=== PATIENT | female | born 2000 | race Caucasian/White ===

== ENCOUNTER 2020-06-18 19:30 | Outpatient (CLI) | payer OTHER ==
[2020-06-18 21:22] LABS: APPEARANCE,URINE CLEAR; BILIRUBIN,URINE NEGATIVE (NEGATIVE); COLOR,URINE STRAW; GLUCOSE, URINE NEGATIVE (NEGATIVE); KETONES,URINE NEGATIVE (NEGATIVE); LEUKOCYTE ESTERASE,URINE NEGATIVE (NEGATIVE); NITRITE,URINE NEGATIVE (NEGATIVE); PROTEIN,URINE NEGATIVE (NEGATIVE); URINE SPECIFIC GRAVITY 1.002; UROBILINOGEN,URINE NEGATIVE mg/dL (<2.0)
[2020-06-18 21:53] LABS: URINE AMPHETAMINES SCREEN NEGATIVE; URINE BARBITURATES SCREEN NEGATIVE; URINE BENZODIAZEPINES SCREEN NEGATIVE; URINE COCAINE SCREEN NEGATIVE; URINE MARIJUANA (THC) SCREEN NEGATIVE; URINE METHADONE SCREEN NEGATIVE; URINE PHENCYCLIDINE SCREEN NEGATIVE
== END 2020-06-18 21:51 | disposition home or self-care (01) ==
LOC: LC 19:30
PROVIDERS: ATTEND Obstetrics & Gynecology
DX: O47.1 False labor at or after 37 completed weeks of gestation (principal); Z3A.37 37 weeks gestation of pregnancy; Z91.010 Allergy to peanuts
CPT/HCPCS: 59025; 80307; 81005

== ENCOUNTER 2020-06-24 01:06 | Inpatient (IN) | payer OTHER ==
--- NOTE | 2020-06-24 01:14 | Non Stress Test Report ---
Non Stress Test Datetime Report Generated by CPN: 06/24/2020 01:14 DEMOGRAPHIC EGA NST: 37.5 INDICATION Indication for Study (NST) Other: IUP @ 37.5, labor observation VITAL SIGNS Temperature - NST: 98.3 Pulse - NST: 90 RESP - NST: 16 NBPSYS NST: 115 NBPDIA NST: 58 MONITORING Monitor Explained: Monitor Explained; Test Explained; Patient Verbalized Understanding Time on Monitor: 06/18/2020 19:53 Time off Monitor: 06/18/2020 20:30 NST Duration: 37 NST INTERVENTIONS NST Interventions: PO Hydration; Reposition Patient Physician Notified NST: Dr. Smith BABY A: [id number] BABY A Movement : Present Contraction Frequency : irregular FHR Baseline : 130 Accelerations : 15X15 Variability : Moderate 6-25bpm NST Review: Meets Criteria for Reactive NST NST Review and Verified By : Garfield vazquez RN NST Results: Reactive NST REPORT Report Trigger: Send Report
[2020-06-24 01:49] LABS: APPEARANCE,URINE CLEAR; BILIRUBIN,URINE NEGATIVE (NEGATIVE); COLOR,URINE STRAW; GLUCOSE, URINE NEGATIVE (NEGATIVE); KETONES,URINE NEGATIVE (NEGATIVE); LEUKOCYTE ESTERASE,URINE TRACE (NEGATIVE); NITRITE,URINE NEGATIVE (NEGATIVE); PROTEIN,URINE NEGATIVE (NEGATIVE); URINE SPECIFIC GRAVITY 1.003; UROBILINOGEN,URINE NEGATIVE mg/dL (<2.0)
[2020-06-24] MEDS ORDERED: GENTAMICIN SULFATE INJ 80 MG/2 ML VIAL ONE (02:08)
[2020-06-24] MEDS ORDERED: AMPICILLIN SOD INJ 2 GM VIAL ONE ×2 (02:08→08:21)
[2020-06-24] MEDS ORDERED: AMPICILLIN SODIUM 2 GM in NORMAL SALINE 100 ML IV ONE (02:13)
[2020-06-24] MEDS ORDERED: RINGERS SOLUTION,LACTATED 1,000 ML IV PRN (02:13)
[2020-06-24] MEDS ORDERED: RINGERS SOLUTION,LACTATED 500 ML IV ONE (02:13)
[2020-06-24] MEDS ORDERED: GENTAMICIN SULFATE INJ 80 MG/2 ML VIAL IV ONE (02:14)
[2020-06-24 02:15] LABS: URINE AMPHETAMINES SCREEN NEGATIVE; URINE BARBITURATES SCREEN NEGATIVE; URINE BENZODIAZEPINES SCREEN NEGATIVE; URINE COCAINE SCREEN NEGATIVE; URINE MARIJUANA (THC) SCREEN NEGATIVE; URINE METHADONE SCREEN NEGATIVE; URINE PHENCYCLIDINE SCREEN NEGATIVE
[2020-06-24] MEDS ORDERED: GENTAMICIN SULFATE 150 MG in DEXTROSE 5%-WATER 100 ML IV ONE (02:30)
[2020-06-24 02:55] LABS: ABSOLUTE EOSINOPHILS # (AUTO) 0.1 10^3/uL (0.0-0.6); ABSOLUTE LYMPHOCYTES (AUTO) 1.9 10^3/uL (0.5-4.7); ABSOLUTE MONOCYTES (AUTO) 0.8 10^3/uL (0.1-1.4); ABSOLUTE NEUT (AUTO) 11.6 10^3/uL (1.7-8.2); BASOPHILS % (AUTO) 0.3 % (0-2); EOSINOPHILS % (AUTO) 0.9 % (0-6); HEMATOCRIT 29.3 % (36.0-47.0); HEMOGLOBIN 10.2 g/dL (12.0-15.5); LYMPHOCYTES % (AUTO) 13.1 % (13-45); MEAN CORPUSCULAR HEMOGLOBIN 31.2 pg (27.0-33.4); MEAN CORPUSCULAR HGB CONC 34.7 g/dL (32.0-36.0); MEAN CORPUSCULAR VOLUME 90 fl (80-97); MONOCYTES % (AUTO) 5.5 % (3-13); PLATELET COUNT 176 10^3/uL (150-450); RED BLOOD COUNT 3.25 10^6/uL (3.72-5.28); RED CELL DISTRIBUTION WIDTH 12.5 % (11.5-14.0); SEGMENTED NEUTROPHILS % (AUTO) 80.2 % (42-78); TOTAL CELLS COUNTED % (AUTO) 100 %; WHITE BLOOD COUNT 14.4 10^3/uL (4.0-10.5)
[2020-06-24] MEDS ORDERED: MISOPROSTOL 0.2 MG TABLET ONE (03:43)
[2020-06-24] MEDS ORDERED: OXYTOCIN 10 UNIT/ML VIAL ONE (03:43)
[2020-06-24] MEDS ORDERED: OXYTOCIN/0.9 % SODIUM CHLORIDE 30 UNIT/500 ML RTUINJ ONE (03:43)
[2020-06-24] MEDS ORDERED: LIDOCAINE 1% INJ-PF (10 MG/ML) 30 ML SDV ONE (03:43)
--- NOTE | 2020-06-24 04:28 | Admission Physical ---
Datetime Report Generated by CPN: 06/24/2020 04:27 CURRENT ADMISSION Chief Complaint: Suspected Ruptured Membranes Chief Complaint Other: thinks she started leaking possibly on Tuesday. Indication for Induction: Not Applicable Indication for Induction- Other: may need augmentation Admit Impression : Term, Intrauterine ; No Active Labor; Ruptured Membranes Admit Plan: Admit to Unit; Initiate Labor Protocol ALLERGIES Medication Allergies: No Medication Allergies: peanut (06/18/2020) Latex: No Latex Allergies Food Allergies: peanut butter OBSTETRICAL HISTORY EDC: 07/04/2020 00:00 : 1 Para: 0 Term: 0 : 0 SAB: 0 IAB: 0 Ectopic: 0 Livin Cesareans: 0 VBACs: 0 Multiple Births: 0 Gestational Diabetes: No Rh Sensitization: No Incompetent Cervix: No MAYURI: No Infertility: No ART Treatment: No Uterine Anomaly: No IUGR: No Hx Previous C/S: No Macrosomia: No Hx Loss/Stillborn: No PIH: No Hx : No Placenta Previa/Abruption: No Depression/PP Depression: No PTL/PROM: No Post Hemorrhage: No Current Procedures: Ultrasound; NST SEE RECORDS Alcohol: No Marijuana : No Cocaine: No Other Illicit Drugs: No Cigarettes: Never Smoker. [id number] Advised to Stop: No MEDICAL HISTORY Diabetes: No Blood Transfusion: No Pulmonary Disease (Asthma, TB): No Breast Disease: No Hypertension: No Social Work Case Manager Surgery: No Heart Disease: No Hosp/Surgery: No Autoimmune Disorder: No Anesthetic Complications: No Kidney Disease: No Abnormal Pap Smear: No Neuro/Epilepsy: No Psychiatric Disorders: No Other Medical Diseases: No Hepatitis/Liver Disease: No Significant Family History: No Varicosities/Phlebitis: No Trauma/Violence : No Thyroid Dysfunction: No INFECTIOUS HISTORY Gonorrhea: No Genital Herpes: No Chlamydia: No Tuberculosis: No Syphilis: No Hepatitis: No HIV/AIDS Exposure: No Rash or Viral Illness: No HPV: No PHYSICAL EXAM General: Normal HEENT: Normal Neurologic: Normal Thyroid: Deferred Heart: Normal Lungs: Normal Breast: Deferred Back: Normal Abdomen: Normal Genitourinary Exam: Normal Extremities: Normal DTRs: Normal Pelvic Type: Adequate Vital Signs: Reviewed VAGINAL EXAM Dilatation: 4 Effacement: 90 Station: -1 Contraction Comments: irreg MEMBRANES Membranes: Ruptured Amniotic Fluid Color: Clear FETUS A EGA: 38.4 Monitoring: External US FHR- Baseline: 120 Variability: Moderate 6-25bpm Accelerations: 15X15 Decelerations: None FHR Category: Category I Presentation: Vertex Admit Comment: 20yo at 38+4ega presents for leaking of fluid since the evening of Tuesday. She reports that she felt like she voided on herself but then it continued leaking through the weekend and then she came in for evaluation today. Due to suspected prolonged ruptute of membranes will begin Amp/Gent. ELevated WBC count but o/w patient is afebrile and without signs of chorio. EFW was 7#7oz on 06/09 at 36wks. GBS negative. Late transfer of care at 33wks but review of records with uncomplicated care. Passed 1hr GTT. Admit and anticipate . PLANS FOR LABOR AND DELIVERY Labor and Delivery: None Pain Management: None Feeding Preference: Formula Benefit of Breast Feed Discussed: Yes Circumcision: Yes INFORMED CONSENT Informed Consent Obtained: Vaginal Delivery; Risks, Benefits and Alternatives Discussed Signature: with User ID: [email or web address]
[2020-06-24] MEDS ORDERED: EPHEDRINE SULFATE INJ 50 MG/1 ML AMPULE ONE ×2 (04:57→07:05)
[2020-06-24] MEDS ORDERED: FENTANYL/BUPIVACAINE/NS/PF 0 MCG/0 ML RTUINJ EPI ONE (04:57)
[2020-06-24] MEDS ORDERED: ROPIVACAINE HCL 0.2% INJ/PF (2 MG/ML) 20 ML SDV ONE ×2 (04:58→07:05)
[2020-06-24] MEDS ORDERED: OXYTOCIN/0.9 % SODIUM CHLORIDE 30 UNIT/500 ML RTUINJ IV PRN ×2 (05:00→10:51)
[2020-06-24] MEDS ORDERED: FENTANYL/BUPIVACAINE/NS/PF 300 MCG/150 ML RTUINJ EPI ONE (07:05)
--- NOTE | 2020-06-24 08:27 | L&D Progress Notes ---
PROGRESS NOTES Datetime Report Generated by CPN: 06/24/2020 08:27 PROGRESS NOTE Informed Consent Obtained: Vaginal Delivery; Risks, Benefits and Alternatives Discussed Comment: Report from Dr. Reese, reviewed records and monitor strips, Cat 1 strip, has been ruptured since Tuesday, received antibiotics, on Pitocin, comfortable with epidural Plan: Continue antibiotics, Pitocin, monitor strip Anticipate VAGINAL EXAM Dilatation: 4 Effacement: 90 Station: -1 Contractions: irreg LAST VAGINAL EXAM-NURSING Nursing Exam Dilitation: 6.0 Nursing Exam Effacement: 90 Nursing Exam Station: 0 MEMBRANES Membranes: Ruptured Amniotic Fluid Color: Clear FETUS A Presentation: Vertex SIGNATURE SIGNATURE: [id number];14,[id number];13,[id number] Assignment: Lainey Sheffield MD Signature: with User ID: [email or web address] : with User ID: [email or web address]
[2020-06-24] MEDS ORDERED: AMPICILLIN SOD INJ 2 GM VIAL IV ONE (08:30)
[2020-06-24] MEDS ORDERED: AMPICILLIN SOD INJ 2 GM VIAL IM SCH (10:00)
[2020-06-24] MEDS ORDERED: GENTAMICIN SULFATE INJ 80 MG/2 ML VIAL IV SCH (10:00)
[2020-06-24] MEDS ORDERED: ACETAMINOPHEN 650 MG SUPP.RECT PR PRN (10:51)
[2020-06-24] MEDS ORDERED: FAMOTIDINE 20 MG TABLET PO PRN (10:51)
[2020-06-24] MEDS ORDERED: DIPHENHYDRAMINE HCL 25 MG CAPSULE PO PRN (10:51)
[2020-06-24] MEDS ORDERED: BENZOCAINE/MENTHOL AEROSOL SPRAY 56 ML TOP PRN (10:51)
[2020-06-24] MEDS ORDERED: DIPH/PERTUSS(ACELL)/TETANUS VAC/PF 0.5 ML SYR (>=10YO) IM PRN (10:51)
[2020-06-24] MEDS ORDERED: MAGNESIUM HYDROXIDE SUSP 30 ML UDCUP PO PRN (10:51)
[2020-06-24] MEDS ORDERED: GLYCERIN/WITCH HAZEL LEAF 1 EACH MED..WIPE TP PRN (10:51)
[2020-06-24] MEDS ORDERED: DIBUCAINE 1% OINTMENT 28 GM TP PRN (10:51)
[2020-06-24] MEDS ORDERED: PSEUDOEPHEDRINE HCL 30 MG TABLET PO PRN (10:51)
[2020-06-24] MEDS ORDERED: ACETAMINOPHEN 325 MG TABLET PO PRN (10:51)
[2020-06-24] MEDS ORDERED: MAG HYDROX/AL HYDROX/SIMETH SUSP 30 ML UDCUP PO PRN (10:51)
[2020-06-24] MEDS ORDERED: VARICELLA VACC/PF (1350 UNIT/0.5 ML) 0.5 ML VIAL SUBCUT PRN (10:51)
[2020-06-24] MEDS ORDERED: MEASLES,MUMPS&RUBELLA VACC/PF 0.5 ML VIAL SUBCUT PRN (10:51)
[2020-06-24] MEDS ORDERED: GENTAMICIN SULFATE 110 MG in DEXTROSE 5%-WATER 100 ML IV SCH (11:00)
--- NOTE | 2020-06-24 11:48 | Birth Certificate Data ---
Cert Data Datetime Report Generated by CPN: 06/24/2020 11:48 CERTIFICATE DATA 47a. Care: No (06/18/2020 19:54:Alondra Beltran RN) 47b. Date of First Visit: 01/31/2020 00:00 (06/18/2020 19:54:Alondra Beltran RN) 47c. Date of Last Visit: 06/17/2020 00:00 (06/18/2020 19:54:Alondra Beltran RN) 47d. Number of Visits: 6 (06/18/2020 19:54:Alondra Beltran RN) 48a. Number of Prev Live Births: 0 (06/18/2020 19:54:Keisha Marmolejo RN) 48b. Now Livin (06/18/2020 19:54:Keisha Marmolejo RN) 48c. Live Births Now : 0 (06/18/2020 19:54:QS system process) 48e. Losses: 0 (06/18/2020 19:54:Keisha Marmolejo RN) RISK FACTORS IN THIS 49a. Diabetes: No (06/18/2020 19:54:Alondra Beltran RN) 49b. Hypertension: No (06/18/2020 19:54:Alondra Beltran RN) 49c. Previous Births: 0 (06/18/2020 19:54:Keisha Marmolejo RN) 49d. Stillborns: No (06/18/2020 19:54:Alondra Beltran RN) 49d. IUGR: No (06/18/2020 19:54:Alondra Beltran RN) 49e. Infertility Treatment: No (06/18/2020 19:54:Alondra Beltran RN) 49f. Previous Cesareans: 0 (06/18/2020 19:54:Keisha Marmolejo RN) Mother's Height 50b. Height Inches: 65 (06/18/2020 20:58:QS system process) Mother's Weight 51a. Pre- Weight (lbs): 132 (06/18/2020 19:54:Keisha Marmolejo RN) 51b. Weight at Delivery (lbs): 163 (06/24/2020 10:24:QS system process) Infections Present/Treated 53a. Gonorrhea: No (06/18/2020 19:54:Alondra Beltran RN) Results this Hospital Visit : Negative (06/18/2020 19:54:Alondra Beltran RN) 53b. Syphilis: No (06/18/2020 19:54:Alondra Beltran RN) Results this Hospital Visit: NONREACTIVE (06/24/2020 02:30:QS system process) 53c. Chlamydia: No (06/18/2020 19:54:Alondra Beltran RN) Results this Hospital Visit: Negative (06/18/2020 19:54:Alondra Beltran RN) 53d. Hepatitis B: No (06/18/2020 19:54:Alondra Beltran RN) Results this Hospital Visit: Negative (06/18/2020 19:54:Alondra Beltran RN) 53e. Hepatitis C: Negative (06/18/2020 19:54:Alondra Beltran RN) 53h. Mother Tested for HBsAG: Yes (06/18/2020 19:54:BARBARA Phillips) 53i. Date Tested: 01/23/2020 00:00 (06/18/2020 19:54:BARBARA Phillips) 53j. Test Result: Negative (06/18/2020 19:54:Alondra Beltran RN) Obstetric Procedures 54a, b, c. Obstetric Procedures: Ultrasound; NST (06/18/2020 19:54:Alondra Beltran RN) Cigarette Smoking Cigarette Smoking: Never Smoker. [id number] (06/18/2020 19:54:Keisha Marmolejo RN) 55a. 3 Months Before Preg - Ci (06/18/2020 19:54:Romy Jack RN) 55b. 1st Trimester of Preg- Ci (06/18/2020 19:54:Romy Jack RN) 55c. 2nd Trimester of Preg- Ci (06/18/2020 19:54:Romy Jack RN) 55d. 3rd Trimester of Preg- Ci (06/18/2020 19:54:Romy Jack RN) Onset of Labor 56a. PROM >12 Hrs: 86.27 (06/24/2020 01:31:QS system process) 57a. Induction of Labor: Augmentation (06/18/2020 19:54:Romy Jack RN) 57c. Non-Vertex Presentation A: Vertex (06/18/2020 19:54:Romy Jack RN) 57d. Steroids - Lung Mat: None (06/18/2020 19:54:Romy Jack RN) 57d. Steroids - Lung Mat: Not Applicable (06/18/2020 19:54:Romy Jack RN) 57f. Mat Ch[place] or Temp >100.4: 98.7 (06/18/2020 19:54:Romy Jack RN) 57g. Moderate/Heavy Meconium: Clear (06/24/2020 06:44:Alondra Beltran RN) 57i. Epidural/Spinal Anesthesia: Epidural (06/18/2020 19:54:Romy Jack RN) Method of Delivery 58a. Forceps - Unsuccessful A: N/A (06/18/2020 19:54:Romy Jack RN) 58b. Vacuum - Unsuccessful A: N/A (06/18/2020 19:54:Romy Jack RN) 58c. Presentation at 58c. Presentation at - A : Vertex (06/18/2020 19:54:Romy Jack RN) 58c. Presentation at - A : N/A (06/18/2020 19:54:Romy Jack RN) 58c. Presentation at - A : Cephalic (06/18/2020 20:01:Keisha Marmolejo RN) Final Route and Method of Del 58d. Baby A Route/Delivery: Vaginal (06/24/2020 10:16:Romy CHATO Jack) 58e. Trial of Labor Attempted: No (06/18/2020 19:54:Romy Marcie, RN) 58e. Trial of Labor Attempted A: N/A ([facility]/18/2020 [facility]) 58e. Trial of Labor Attempted B: N/A (06/18/2020 19:54:[facility] ) Maternal Morbidity 59b. 3rd or 4th Degree Lacs: Periurethral (06/18/2020 [facility]:54[facility]) 59b. 3rd or 4th Degree Lacs: First Degree (06/18/2020 [facility]) Birthweight Baby A: 3822 (06/18/2020 19:54:Romy Marcie, RN) 60a. Pounds : 8 (06/18/2020 19:54:QS system process) 60b. Ounces: 7 (06/18/2020 19:54:QS system process) 61. GA at Delivery Baby A: 38.4 (06/18/2020 19:54:Romy Marcie, RN) : Early Term- 37- 38.6 Weeks (06/18/2020 19:54:QS system process) 62a. 5 Minute Baby A: 9 (06/18/2020 19:54:QS system process)
--- NOTE | 2020-06-24 11:48 | Delivery Summary ---
Del Sum A-C Datetime Report Generated by CPN: 06/24/2020 11:48 DELIVERY PERSONNEL DELIVERY PERSONNEL: [id number] Nurse Structural Metal Worker Certified:: Britany Reynolds CNM Labor and Delivery Nurse:: Romy Jack RN Nursery Nurse:: Nora Wray RN Supervisor Train Operations/SERVOMECHANISM DESIGNER: Jil Sousa, ST Supervisor Train Operations/SERVOMECHANISM DESIGNER: Gilda Vishnu, BILLING AND ACCOUNTING STAFF ASSISTANT MATERNAL INFORMATION Delivery Anesthesia: Epidural Medications After Delivery: Pitocin 30 Units in 500ml NS/D5W Meds After Delivery Comment: Lidocaine for repair Delivery QBL: 200 Maternal Complications: Other Complication Details: Prolonged ruptured membranes Provider Comments: viable male from OA to KIM, loose nuchal, reduced after delivery, place on mothers abd, nursery in attendance for delivery, cord clamped and cut by FOB after 2 min, spont delivery of large placenta, sent to lab for evaluation secodary to prolonged rupture of membranes, cord blood obtained bilateral periurethral repaired with 2-0 chromic, red quita placed with large amount of urine FFFM, uterine massage and Pitocin, Baby and mom remain in recovery, fob doing skin to skin, mom plans to breastfeed LABOR SUMMARY EDC: 07/04/2020 00:00 No. Babies in Womb: 1 Attempted: No Labor Anesthesia: Epidural LABOR INFORMATION Reason for Induction: Not Applicable Complete Dilatation: 06/24/2020 09:26 Oxytocin: Augmentation Group B Beta Strep: Negative Steroids Given: None Reason Steroids Not Administered: Not Applicable MEMBRANES Membranes Rupture Method: Spontaneous Rupture of Membranes: 06/20/2020 20:00 Length of Rupture (hr): 86.27 Amniotic Fluid Color: Clear Amniotic Fluid Amount: Scant Amniotic Fluid Odor: Normal STAGES OF LABOR Stage 2 hr: 0 Stage 2 min: 50 Stage 3 hr: 0 Stage 3 min: 5 VAGINAL DELIVERY Episiotomy: None Laceration #1: Periurethral Laceration Extension #1: First Degree Laceration Repair: Yes Laceration Repair Note: bilateral periuretral repaired with 2-0 chromic and 1% Lidocaine Sponge Count Correct: Yes Sharps Count Correct: Yes BABY A INFORMATION Delivery Date/Time: 06/24/2020 10:16 Method of Delivery: Vaginal Nurse Controlled Delivery: No Born in Route : No : N/A Forceps: N/A Vacuum Extraction: N/A Shoulder Dystocia : No PRESENTATION/POSITION BABY A Presentation: Cephalic Cephalic Presentation: Vertex Vertex Position: Left Occipital Anterior Breech Presentation: N/A PLACENTA INFORMATION BABY A Placenta Delivery Time : 06/24/2020 10:21 Placenta Method of Delivery: Spontaneous Placenta Status: Delivered SCORES BABY A Heart Rate 1 min: >100 bpm Resp Effort 1 min: Good Cry Reflex Irritability 1 min: Cough or Sneeze or Pulls Away Muscle Tone 1 min: Active Motion Color 1 min: Blue/Pale Resuscitation Effort 1 min: Tactile Stimulation SCORE 1 MIN: 8 Heart Rate 5 min: >100 bpm Resp Effort 5 min: Good Cry Reflex Irritability 5 min: Cough or Sneeze or Pulls Away Muscle Tone 5 min: Active Motion Color 5 min: Body Casselman, Extremities Blue Resuscitation Effort 5 min: Tactile Stimulation SCORE 5 MIN: 9 INFANT INFORMATION BABY A Gestational Age at Delivery: 38.4 Gestational Status: Early Term- 37- 38.6 Weeks Outcome : Liveborn Condition : Stable Sex: Male IDENTIFICATION BABY A Infant Verification Date/Time: 06/24/2020 10:47 ID Band Number: [id number] Mother's Name Verified: Yes Infant RN Verifying Infant: CHATO Adam Additional Verifying Personnel: [facility], WEIGHT/LENGTH BABY A Birthweight (gm): 3822 Weight (lb): 8 Weight (oz): 7 Length (in): 20.50 Infant Length (cm): 52.07 CORD INFORMATION BABY A No. Cord Vessels: 3 Nuchal Cord : Around Neck x1, Loose Cord Blood Taken: Yes-For Eval (Mom's Blood Type - or O+) Infant Suction: Mouth ASSESSMENT BABY A Infant Complications: None Physical Findings at Delivery: Within Normal Limits Infant Respirations: Appears Normal Skin to Skin: Yes Skin to Skin Time (min): 2 Caramel Cutter Hand/ALS Called : No BABY B INFORMATION : N/A
[2020-06-24] MEDS ORDERED: AMPICILLIN SODIUM 2 GM in NORMAL SALINE 100 ML IV SCH ×2 (14:00)
[2020-06-24] MEDS: IBUPROFEN 800 MG TABLET PO SCH ×2 (14:37→21:29)
[2020-06-24] MEDS: FERROUS SULFATE 325 MG TABLET PO SCH (17:42)
[2020-06-24] MEDS: DOCUSATE SODIUM 100 MG CAPSULE PO SCH (17:42)
[2020-06-25] MEDS: ACETAMINOPHEN WITH CODEINE #3 TABLET PO PRN ×3 (03:25→23:02)
[2020-06-25] MEDS: IBUPROFEN 800 MG TABLET PO SCH ×3 (05:22→21:12)
[2020-06-25 08:29] LABS: HEMATOCRIT 26.5 % (36.0-47.0); MEAN CORPUSCULAR HEMOGLOBIN 30.6 pg (27.0-33.4); MEAN CORPUSCULAR HGB CONC 33.9 g/dL (32.0-36.0); MEAN CORPUSCULAR VOLUME 90 fl (80-97); PLATELET COUNT 159 10^3/uL (150-450); RED BLOOD COUNT 2.94 10^6/uL (3.72-5.28); RED CELL DISTRIBUTION WIDTH 12.4 % (11.5-14.0); WHITE BLOOD COUNT 11.7 10^3/uL (4.0-10.5)
[2020-06-25] MEDS: FERROUS SULFATE 325 MG TABLET PO SCH ×2 (09:55→18:02)
[2020-06-25] MEDS: SENNOSIDES/DOCUSATE 8.6-50 MG 1 EACH TABLET PO SCH (09:55)
[2020-06-25] MEDS: DOCUSATE SODIUM 100 MG CAPSULE PO SCH ×2 (09:55→18:02)
[2020-06-25] MEDS: PRENATAL VITAMIN W DHA CAPSULE PO SCH (09:55)
--- NOTE | 2020-06-25 13:42 | PDOC PROGRESS REPORT ---
Subjective-OB Progress Note for:: 06/25/20 Subjective: Pt doing well, no concerns. She reports light bleeding, reg diet and voiding w/o difficulty. Physical Exam (OB) Vital Signs: Temp Pulse Resp BP Pulse Ox 98.3 F 77 16 119/66 99 06/25/20 10:00 06/25/20 07:45 06/25/20 07:45 06/25/20 07:45 06/25/20 07:45 Intake & Output 06/24/20 06/25/20 06/26/20 06:59 06:59 06:59 Intake Total 3500 400 Balance 3500 400 Weight 73.7 kg - PIH/Pre-Eclampsia DTR's: 1 + Clonus: Negative Headache: Absent Epigastric Pain: No Visual Changes: No - Maternal Morbidity 59. Maternal Morbidity (serious complications experinced by the mother associated with labor and delivery: None of the above - Lochia Lochia Amount: Small 10-25 ml Lochia Color: Rubra/Red - Abdomen Description: Soft, Round Hernia Present: No Fundal Description: Firm, Midline Fundal Height: u/u - u/2 Objective-Diagnostic Laboratory: 06/25/20 07:37 06/25/20 07:37 WBC 11.7 H RBC 2.94 L Hgb 9.0 L Hct 26.5 L MCV 90 MCH 30.6 MCHC 33.9 RDW 12.4 Plt Count 159 Assessment and Plan(PN) - Assessment and Plan (1) Anemia affecting Qualifiers: Trimester: third trimester Qualified Code(s): O99.013 - Anemia complicating , third trimester Is this a current diagnosis for this admission?: Yes (2) Laceration of periurethral tissue with delivery Is this a current diagnosis for this admission?: Yes (3) Prolonged rupture of membranes Is this a current diagnosis for this admission?: Yes (4) Vaginal delivery Is this a current diagnosis for this admission?: Yes - Time Spent with Patient Time with patient: Less than 15 minutes Medications reviewed and adjusted accordingly: Yes - Disposition Anticipated Discharge Disposition: Home, Self Care Anticipated Discharge Timeframe: within 24 hours
[2020-06-26] MEDS: IBUPROFEN 800 MG TABLET PO SCH (05:30)
[2020-06-26 07:58] VITALS: BP 126/70
[2020-06-26] MEDS: FERROUS SULFATE 325 MG TABLET PO SCH (09:21)
[2020-06-26] MEDS: PRENATAL VITAMIN W DHA CAPSULE PO SCH (09:21)
[2020-06-26] MEDS: SENNOSIDES/DOCUSATE 8.6-50 MG 1 EACH TABLET PO SCH (09:21)
[2020-06-26] MEDS: DOCUSATE SODIUM 100 MG CAPSULE PO SCH (09:21)
--- NOTE | 2020-06-26 13:33 | PDOC DISCHARGE SUMMARY ---
Impression - Admit/DC Date/PCP Admission Date/Primary Care Provider: 06/24/20 02:00 JUAN HERNANDEZ MD Discharge Date: 06/26/20 - Discharge Diagnosis (1) Anemia affecting Is this a current diagnosis for this admission?: Yes (2) Laceration of periurethral tissue with delivery Is this a current diagnosis for this admission?: Yes (3) Prolonged rupture of membranes Is this a current diagnosis for this admission?: Yes (4) Vaginal delivery Is this a current diagnosis for this admission?: Yes - Additional Information Discharge Diet: Regular Discharge Activity: Balance Activity w/Rest, Pelvic Rest [facility] (Call to schedule your 4 week follow up ) Prescriptions: Ibuprofen [Motrin 800 mg Tablet] 800 mg PO Q8HP PRN #60 tablet PRN Reason: Home Medications: Doxylamine Succinate [Unisom] 25 mg PO DAILY 06/18/20 Vits96/Iron Fum/Folic [ Tablet] 1 each PO DAILY 06/18/20 Ibuprofen [Motrin 800 mg Tablet] 800 mg PO Q8HP PRN #60 tablet 06/26/20 Hospital Course 59. Maternal Morbidity (serious complications experinced by the mother associat ed with labor and delivery: None of the above Results Laboratory Results: WBC 11.7 10^3/uL (4.0-10.5) H 06/25/20 07:37 RBC 2.94 10^6/uL (3.72-5.28) L 06/25/20 07:37 Hgb 9.0 g/dL (12.0-15.5) L 06/25/20 07:37 Hct 26.5 % (36.0-47.0) L 06/25/20 07:37 MCV 90 fl (80-97) 06/25/20 07:37 MCH 30.6 pg (27.0-33.4) 06/25/20 07:37 MCHC 33.9 g/dL (32.0-36.0) 06/25/20 07:37 RDW 12.4 % (11.5-14.0) 06/25/20 07:37 Plt Count 159 10^3/uL (150-450) 06/25/20 07:37 Lymph % (Auto) 13.1 % (13-45) 06/24/20 02:30 [place] % (Auto) 5.5 % (3-13) 06/24/20 02:30 Eos % (Auto) 0.9 % (0-6) 06/24/20 02:30 Baso % (Auto) 0.3 % (0-2) 06/24/20 02:30 Absolute Neuts (auto) 11.6 10^3/uL (1.7-8.2) H 06/24/20 02:30 Absolute Lymphs (auto) 1.9 10^3/uL (0.5-4.7) 06/24/20 02:30 Absolute Monos (auto) 0.8 10^3/uL (0.1-1.4) 06/24/20 02:30 Absolute Eos (auto) 0.1 10^3/uL (0.0-0.6) 06/24/20 02:30 Absolute Basos (auto) 0.0 10^3/uL (0.0-0.2) 06/24/20 02:30 Seg Neutrophils % 80.2 % (42-78) H 06/24/20 02:30 Urine Color STRAW 06/24/20 01:14 Urine Appearance CLEAR 06/24/20 01:14 Urine pH 8.0 (5.0-9.0) 06/24/20 01:14 Ur Specific [place] 1.003 06/24/20 01:14 Urine Protein NEGATIVE mg/dL (NEGATIVE) 06/24/20 01:14 Urine Glucose (UA) NEGATIVE mg/dL (NEGATIVE) 06/24/20 01:14 Urine Ketones NEGATIVE mg/dL (NEGATIVE) 06/24/20 01:14 Urine Blood NEGATIVE (NEGATIVE) 06/24/20 01:14 Urine Nitrite NEGATIVE (NEGATIVE) 06/24/20 01:14 Urine Bilirubin NEGATIVE (NEGATIVE) 06/24/20 01:14 Urine Urobilinogen NEGATIVE mg/dL (<2.0) 06/24/20 01:14 Ur Leukocyte Esterase TRACE (NEGATIVE) H 06/24/20 01:14 Urine Ascorbic Acid NEGATIVE (NEGATIVE) 06/24/20 01:14 Membranes Rupture POSITIVE (NEGATIVE) H 06/24/20 01:25 Urine Opiates Screen NEGATIVE 06/24/20 01:14 Urine Methadone Screen NEGATIVE 06/24/20 01:14 Ur Barbiturates Screen NEGATIVE 06/24/20 01:14 Ur Phencyclidine Scrn NEGATIVE 06/24/20 01:14 Ur Amphetamines Screen NEGATIVE 06/24/20 01:14 U Benzodiazepines Scrn NEGATIVE 06/24/20 01:14 Urine Cocaine Screen NEGATIVE 06/24/20 01:14 U Marijuana (THC) Screen NEGATIVE 06/24/20 01:14 RPR NONREACTIVE (NONREACTIVE) 06/24/20 02:30 Blood Type O POSITIVE 06/24/20 02:30 Antibody Screen NEGATIVE 06/24/20 02:30 Plan Plan of Treatment: follow up in 4 weeks at [facility] for post check
== END 2020-06-26 13:56 | disposition home or self-care (01) | DRG 807 ==
LOC: LC 01:06 → LR 02:00 → 2S 12:33
PROVIDERS: ADMIT Student in an Organized Health Care Education/Training Program; ATTEND Student in an Organized Health Care Education/Training Program
PROC: 10E0XZZ Delivery of Products of Conception, External Approach (ICD-10-PCS; principal; 2020-06-24)
PROC: 0HQ9XZZ Repair Perineum Skin, External Approach (ICD-10-PCS; 2020-06-24)
DX: O42.92 Full-term premature rupture of membranes, unspecified as to length of time between rupture and onset of labor (principal); Z37.0 Single live birth; Z3A.38 38 weeks gestation of pregnancy; D72.829 Elevated white blood cell count, unspecified; O69.81X0 Labor and delivery complicated by cord around neck, without compression, not applicable or unspecified; O71.82 Other specified trauma to perineum and vulva; O99.02 Anemia complicating childbirth; Z91.018 Allergy to other foods
CPT/HCPCS: 1967; 36415; 80307; 81005; 84112; 85025; 85027; 86592; 86850; 86900; 86901; 88307; 94760; J0290; J1580; J2590; J2795; J3010; J3490; J7050; J7060